=== PATIENT | female | born 1950 | race Caucasian/White ===

== ENCOUNTER → 2019-04-03 | Outpatient (CLI) | payer OTHER ==
[~2019-04-03] MED LIST: ACETAMINOPHEN-1 EAC1 PO; CLONAZEPAM1 MG PO; CYMBALTA60 MG PO; FLEXERIL PO; LEVOTHYROXINE0.05 MG PO; METFORMIN HCL500 MG PO; PROSCAR 5MG TABL5 MG PO; QUINU10 PD PO; TENORMIN50 MG PO; VOLTAREN GEL 1100 G2 TOP; WELLBUTRIN 75 M75 M1 PO; ZOCOR20 MG PO
== END ==
LOC: M.RAD 13:19
DX: L98.8 Other specified disorders of the skin and subcutaneous tissue (principal); Z85.3 Personal history of malignant neoplasm of breast; Z92.3 Personal history of irradiation

== ENCOUNTER → 2019-04-07 | Outpatient (CLI) | payer OTHER ==
--- NOTE | ~2019-04-07 | ONC ---
[place] [address] RADIATION ONCOLOGY NOTE Name: KAVON MALLOY Chadwick Room: [facility]#: [id number] Admission: 04/07/19 Attend Phys: Robin Dutta MD Discharge: Date of : 48 Report #: [id number] THIS REPORT FOR: //name// CC: Robin Navarro III DO Usman ESTES DATE OF SERVICE: 04/07/2019 REFERRING PHYSICIANS: Dr. Tony Navarro, Anton Estes MD, and Usman Rocha MD [facility] phone is [phone]. 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 Radiation treatments were completed on 10/01/2011. INTERVAL NOTES: The patient denied having any nipple discharge from the right breast. The patient denied having any nipple discharge from the left breast. She denied having any palpable masses involving the left breast. She denied having any palpable masses involving the right breast. She denied having any upper extremity edema. She had an episode after she started antibiotics of having tenderness in the right breast and slight discoloration, those symptoms went away after she finished the antibiotics. MEDICATIONS: Right now are atenolol, simvastatin, levothyroxine, Cymbalta, bupropion, and ranitidine. SOCIAL HISTORY: The patient is retired. 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 She is . Cigarettes, she does not smoke. REVIEW OF SYSTEMS: RESPIRATORY: The patient's breathing was baseline. She was not short of breath during her appointment. MUSCULOSKELETAL: She has good range of motion in her extremities. PHYSICAL EXAMINATION: The patient was seen with my nurse, Jacklyn Molina, present. VITAL SIGNS: The patient weighed 184.2 pounds on 04/07/2019 and she was 172.3 pounds on 05/21/2016. On 04/07/2019, blood pressure was 144/79, pulse 67, respirations 16, oxygen saturation was 96%. LYMPH NODES: She had no palpable cervical, supraclavicular or axillary lymphadenopathy. HEART: Had a regular rate and rhythm [place] [address] RADIATION ONCOLOGY NOTE Name: MALLOYKAVON Chadwick Room: [facility]#: [id number] Admission: 04/07/19 Attend Phys: Robin Dutta MD Discharge: Date of : 48 Report #: [id number] LUNGS: Clear to auscultation. BREASTS: Right breast had no suspicious palpable masses. Left breast had no suspicious palpable masses. EXTREMITIES: Had no clubbing, cyanosis or edema. RADIOLOGIC DATA: The patient had a bilateral mammogram on 04/03/2019 which revealed benign findings. ASSESSMENT AND PLAN: 1. History of ductal carcinoma in situ, right breast. The patient has no evidence of breast cancer at this time. A requisition was written for bilateral mammogram in about 1 year and the patient was offered a followup appointment to see me afterwards. 2. Hyperlipidemia. The patient takes simvastatin and that is managed by referring physicians. 3. Hypothyroidism. The patient takes levothyroxine that is managed by referring physicians. 4. Hypertension. The patient takes atenolol and that is managed by referring physicians. 5. Recall reaction - The patient's findings are consistent with a radiation recall reaction after the patient was taking antibiotics and the tenderness and the skin discoloration resolved after she completed the antibiotics. Thank you for allowing me to participate in the care of this patient. By: [id number] Dutta MD /artemio
== END ==
LOC: M.RTH 04:41
DX: Z08 Encounter for follow-up examination after completed treatment for malignant neoplasm (principal); E78.5 Hyperlipidemia, unspecified; E03.9 Hypothyroidism, unspecified; I10 Essential (primary) hypertension; Z85.3 Personal history of malignant neoplasm of breast

== ENCOUNTER 2019-09-08 11:43 | Emergency (ER) | payer OTHER ==
[~2019-09-08] VITALS: Ht 157.5 cm; Wt 77.1 kg
[2019-09-08 11:51] VITALS: BP 142/71
[2019-09-08] MEDS ORDERED: NORCO 5-325 TA1 EAC1 PO (12:20)
[2019-09-08] MEDS ORDERED: FLEXERIL PO (12:20)
== END 2019-09-08 12:26 | disposition home or self-care (01) ==
LOC: M.ERS 11:43
DX: S16.1XXA Strain of muscle, fascia and tendon at neck level, initial encounter (principal); R42 Dizziness and giddiness; R51 Headache; R11.0 Nausea; I10 Essential (primary) hypertension; M81.0 Age-related osteoporosis without current pathological fracture; E78.00 Pure hypercholesterolemia, unspecified; E11.9 Type 2 diabetes mellitus without complications; Z90.49 Acquired absence of other specified parts of digestive tract; Z79.899 Other long term (current) drug therapy; X58.XXXA Exposure to other specified factors, initial encounter; Y93.89 Activity, other specified; Y92.89 Other specified places as the place of occurrence of the external cause; Y99.8 Other external cause status

== ENCOUNTER 2019-09-22 17:47 | Emergency (ER) | payer OTHER ==
[~2019-09-22] VITALS: Ht 160 cm; Wt 77.1 kg
[~2019-09-22 17:47] MED LIST changes: +NORCO 5-325 TA1 EAC1 PO
[2019-09-22] MEDS ORDERED: PERCOCET PO (19:27)
[2019-09-22] MEDS ORDERED: NAPROSYN500 MG PO (19:27)
[2019-09-22 19:48] VITALS: BP 130/68
== END 2019-09-22 19:51 | disposition home or self-care (01) ==
LOC: M.ERS 17:47
DX: S92.514A Nondisplaced fracture of proximal phalanx of right lesser toe(s), initial encounter for closed fracture (principal); I10 Essential (primary) hypertension; E78.00 Pure hypercholesterolemia, unspecified; E11.9 Type 2 diabetes mellitus without complications; M19.90 Unspecified osteoarthritis, unspecified site; Z90.49 Acquired absence of other specified parts of digestive tract; X58.XXXA Exposure to other specified factors, initial encounter; Y93.89 Activity, other specified; Y92.89 Other specified places as the place of occurrence of the external cause; Y99.8 Other external cause status

== ENCOUNTER 2020-08-26 13:40 | Emergency (ER) | payer OTHER ==
[~2020-08-26] VITALS: Ht 160 cm; Wt 81.7 kg
[~2020-08-26 13:40] MED LIST changes: +NAPROSYN500 MG PO; +PERCOCET PO
[2020-08-26] MEDS ORDERED: FLEXERIL PO (14:20)
[2020-08-26] MEDS ORDERED: NORCO 5-325 TA1 EAC2 PO (14:20)
[2020-08-26 14:30] VITALS: BP 144/85
== END 2020-08-26 14:31 | disposition home or self-care (01) ==
LOC: M.ERS 13:40
DX: M43.6 Torticollis (principal); I10 Essential (primary) hypertension; E78.00 Pure hypercholesterolemia, unspecified; E11.9 Type 2 diabetes mellitus without complications; M19.90 Unspecified osteoarthritis, unspecified site; Z90.49 Acquired absence of other specified parts of digestive tract

== ENCOUNTER 2021-02-01 12:16 | Emergency (ER) | payer OTHER ==
[~2021-02-01] VITALS: Ht 160 cm; Wt 79.4 kg
[~2021-02-01 12:16] MED LIST changes: +NORCO 5-325 TA1 EAC2 PO
[2021-02-01] MEDS ORDERED: PLAQUENIL200 MG PO (12:32)
[2021-02-01 13:25] LABS: ABSOLUTE BASOPHILS 0.1 thou/uL (0.0-0.2); ABSOLUTE EOSINOPHILS 0.2 thou/uL (0.0-0.7); ABSOLUTE LYMPHOCYTES 1.1 thou/uL (0.8-5.3); ABSOLUTE MONOCYTES 0.5 thou/uL (0.0-1.2); BASOPHILS 1.2 %; EOSINOPHILS 2.4 %; HEMOGLOBIN 13.1 gm/dL (12.0-15.0); LYMPHOCYTES 13.8 %; MCH 27.9 pg (26.0-34.0); MCHC 32.8 g/dL (28.0-37.0); MCV 84.9 fL (80.0-100.0); MONOCYTES 6.6 %; MPV 7.7 fl. (7.2-11.1); NUCLEATED RBCS 0 /100WBC; PLATELET COUNT* 197 thou/uL (150-400); RBC 4.72 mil/uL (4.20-5.00); RDW-CV 14.7 % (10.5-14.5); WBC 7.9 thou/uL (4.0-11.0)
[2021-02-01 13:36] LABS: CALCIUM 9.3 mg/dL (8.5-10.1); CREATININE 1.5 mg/dL (0.6-1.3); POTASSIUM 4.7 mmol/L (3.5-5.1)
[2021-02-01 13:39] LABS: URIC ACID* 7.4 mg/dL (2.6-7.2)
[2021-02-01] MEDS ORDERED: PREDNISONE 10 M10 M1 PO (13:57)
[2021-02-01] MEDS ORDERED: HYDROCODON-ACE1 EAC7 PO (13:57)
[2021-02-01 14:10] VITALS: BP 157/88
== END 2021-02-01 14:10 | disposition home or self-care (01) ==
LOC: M.ERS 12:16
PROVIDERS: Emergency Medicine Emergency Medical Services
DX: M10.071 Idiopathic gout, right ankle and foot (principal); I10 Essential (primary) hypertension; E78.00 Pure hypercholesterolemia, unspecified; E11.9 Type 2 diabetes mellitus without complications; M19.90 Unspecified osteoarthritis, unspecified site; Z90.49 Acquired absence of other specified parts of digestive tract